=== PATIENT | female | born 1965 | race Caucasian/White ===

== ENCOUNTER 2017-05-06 03:43 | Outpatient (CLI) | payer BC, SELFPAY ==
[~2017-05-06 03:43] MED LIST: ASPI-41 PO; ATOR80TA PO; DOCU100C40 PO; GABA-532 PO; GEMF600T3 PO; HYDR-3972 PO; LANTUS SUBCUT; METF10002 PO; METO25TA6 PO; SITA100T11 PO
== END 2017-05-06 23:59 | disposition home or self-care (01) ==
LOC: DIABETIC 03:43
PROVIDERS: ATTEND Nurse Practitioner
DX: E11.9 Type 2 diabetes mellitus without complications (principal)
CPT/HCPCS: G0108

== ENCOUNTER 2017-08-05 03:53 | Outpatient (CLI) | payer BC | END 2017-08-05 23:59 | disposition home or self-care (01) | LOC: DIABETIC 03:53 | PROVIDERS: ATTEND Nurse Practitioner | DX: E11.9 Type 2 diabetes mellitus without complications (principal); I10 Essential (primary) hypertension | CPT/HCPCS: G0108 ==

== ENCOUNTER 2017-11-10 02:02 | Outpatient (CLI) | payer BC ==
[~2017-11-10 02:02] MED LIST changes: -GEMF600T3 PO; +GEMF600T4 PO; -METF10002 PO; +METF10004 PO
== END 2017-11-10 23:59 | disposition home or self-care (01) ==
LOC: DIABETIC 02:02
PROVIDERS: ATTEND Nurse Practitioner
DX: E11.9 Type 2 diabetes mellitus without complications (principal); F10.10 Alcohol abuse, uncomplicated; I10 Essential (primary) hypertension; Z79.82 Long term (current) use of aspirin; Z79.899 Other long term (current) drug therapy; Z90.710 Acquired absence of both cervix and uterus
CPT/HCPCS: G0108

== ENCOUNTER 2018-02-09 02:23 | Outpatient (CLI) | payer SELFPAY ==
[~2018-02-09 02:23] MED LIST changes: +METF-438 PO; -METF10004 PO
== END 2018-02-09 23:59 | disposition home or self-care (01) ==
LOC: DIABETIC 02:23
PROVIDERS: ATTEND Nurse Practitioner
DX: E11.9 Type 2 diabetes mellitus without complications (principal); I10 Essential (primary) hypertension; Z79.82 Long term (current) use of aspirin; Z79.4 Long term (current) use of insulin; Z79.899 Other long term (current) drug therapy; Z79.84 Long term (current) use of oral hypoglycemic drugs; Z90.710 Acquired absence of both cervix and uterus
CPT/HCPCS: G0108

== ENCOUNTER 2018-05-11 02:26 | Outpatient (CLI) | payer BC ==
[~2018-05-11 02:26] MED LIST changes: -GEMF600T4 PO; +GEMF600T89 PO
== END 2018-05-11 23:59 | disposition home or self-care (01) ==
LOC: DIABETIC 02:26
PROVIDERS: ATTEND Nurse Practitioner
DX: E11.9 Type 2 diabetes mellitus without complications (principal); E66.01 Morbid (severe) obesity due to excess calories; Z68.30 Body mass index [BMI] 30.0-30.9, adult; Z71.3 Dietary counseling and surveillance
CPT/HCPCS: G0108

== ENCOUNTER 2018-08-10 01:28 | Outpatient (CLI) | payer BC | END 2018-08-10 23:59 | disposition home or self-care (01) | LOC: DIABETIC 01:28 | PROVIDERS: ATTEND Internal Medicine | DX: E11.65 Type 2 diabetes mellitus with hyperglycemia (principal); E11.21 Type 2 diabetes mellitus with diabetic nephropathy; E11.319 Type 2 diabetes mellitus with unspecified diabetic retinopathy without macular edema; E78.5 Hyperlipidemia, unspecified; I10 Essential (primary) hypertension; E11.43 Type 2 diabetes mellitus with diabetic autonomic (poly)neuropathy; K31.84 Gastroparesis; Z79.899 Other long term (current) drug therapy | CPT/HCPCS: G0108 ==

== ENCOUNTER 2018-11-09 02:36 | Outpatient (CLI) | payer BC | END 2018-11-09 23:59 | disposition home or self-care (01) | LOC: DIABETIC 02:36 | PROVIDERS: ATTEND Internal Medicine | DX: E11.65 Type 2 diabetes mellitus with hyperglycemia (principal); E11.40 Type 2 diabetes mellitus with diabetic neuropathy, unspecified; E11.319 Type 2 diabetes mellitus with unspecified diabetic retinopathy without macular edema; E11.21 Type 2 diabetes mellitus with diabetic nephropathy; E11.59 Type 2 diabetes mellitus with other circulatory complications; E11.43 Type 2 diabetes mellitus with diabetic autonomic (poly)neuropathy; K31.84 Gastroparesis; I10 Essential (primary) hypertension; E78.5 Hyperlipidemia, unspecified; Z79.4 Long term (current) use of insulin; Z79.82 Long term (current) use of aspirin; Z79.899 Other long term (current) drug therapy | CPT/HCPCS: G0108 ==

== ENCOUNTER 2019-02-09 01:18 | Outpatient (CLI) | payer BC | END 2019-02-09 23:59 | disposition home or self-care (01) | LOC: DIABETIC 01:18 | PROVIDERS: ATTEND Internal Medicine | DX: E11.65 Type 2 diabetes mellitus with hyperglycemia (principal); I10 Essential (primary) hypertension; Z79.82 Long term (current) use of aspirin; Z79.4 Long term (current) use of insulin; Z79.899 Other long term (current) drug therapy | CPT/HCPCS: G0108 ==

== ENCOUNTER 2019-05-30 04:54 | Outpatient (CLI) | payer BC | END 2019-05-30 23:59 | disposition home or self-care (01) | LOC: DIABETIC 04:54 | PROVIDERS: ATTEND Internal Medicine | DX: E11.9 Type 2 diabetes mellitus without complications (principal) | CPT/HCPCS: G0108 ==

== ENCOUNTER 2023-07-28 08:15 | Day surgery (SDC) | payer BC ==
[~2023-07-28] VITALS: Ht 160 cm; Wt 81.8 kg
[~2023-07-28 08:15] MED LIST changes: +LOP25T PO; -METO25TA6 PO
[2023-07-28 08:40] VITALS: BP 150/77; PULSE 74; RESP 12
[2023-07-28] MEDS ORDERED: LIDOcaine 2% Viscous 15ml cup ONE (10:34)
[2023-07-28] MEDS ORDERED: diphenhydrAMINE 50 mg/ml inj ONE (10:36)
[2023-07-28] MEDS ORDERED: MIDAZolam 1 MG/ML 5ML VIAL ONE (10:36)
[2023-07-28] MEDS ORDERED: fentaNYL/PF 50MCG/1 ML 2ML syringe ONE (10:36)
[2023-07-28 11:19] VITALS: BP 123/71; PULSE 70; RESP 16; O2SAT 94
[2023-07-28 11:29] VITALS: BP 119/73; PULSE 68; RESP 15; O2SAT 96
[2023-07-28 11:39] VITALS: BP 128/67; PULSE 67; RESP 16; O2SAT 96
[2023-07-28 11:49] VITALS: BP 130/73; PULSE 69; RESP 19; O2SAT 95
== END 2023-07-28 12:05 | disposition home or self-care (01) ==
LOC: GI LAB 08:15
PROVIDERS: ATTEND Internal Medicine Gastroenterology
DX: D50.0 Iron deficiency anemia secondary to blood loss (chronic) (principal); K57.30 Diverticulosis of large intestine without perforation or abscess without bleeding; D12.3 Benign neoplasm of transverse colon; K29.70 Gastritis, unspecified, without bleeding
CPT/HCPCS: 43239; 45380; 99152; J1200; J2250; J3010; J7030; Z7512; 99153; A4620; C1889